=== PATIENT | female | born 1960 | race Caucasian/White ===

== ENCOUNTER → 2016-12-03 | Outpatient (CLI) | payer BC | LOC: MC.RAD 08:08 | DX: Z12.31 Encounter for screening mammogram for malignant neoplasm of breast (principal); N64.89 Other specified disorders of breast ==

== ENCOUNTER → 2017-12-16 | Outpatient (CLI) | payer BC | LOC: MC.RAD 10:30 | DX: Z12.31 Encounter for screening mammogram for malignant neoplasm of breast (principal) ==

== ENCOUNTER → 2018-12-25 | Outpatient (CLI) | payer BC | LOC: MC.RAD 12:52 | DX: Z12.31 Encounter for screening mammogram for malignant neoplasm of breast (principal) ==

== ENCOUNTER 2019-03-09 07:27 | Day surgery (SDC) | payer BC ==
[~2019-03-09] VITALS: Ht 170.2 cm; Wt 85.0 kg
[2019-03-09] MEDS ORDERED: MOBIC 7.5MG7.5 MG PO (07:58)
[2019-03-09] MEDS ORDERED: CENTRUM SILVER1 CTB PO (07:59)
[2019-03-09] MEDS ORDERED: GLUCOSAMINE SUL1 TAB PO (07:59)
[2019-03-09] MEDS ORDERED: ASPIRIN 81M81 MG/TA2 PO (08:00)
[2019-03-09 08:18] VITALS: BP 119/69; PULSE 78; TEMP 98.3
[2019-03-09 11:08] VITALS: BP 137/63; PULSE 73; TEMP 97.8
--- NOTE | 2019-03-09 11:08 | NUR ---
Patient arrives back to [facility] alert, reports pain tolerable in left knee. Patient monitor applied, vitals stable. Patient's spouse at bedside. Patient given water, coffee, and muffin.
[2019-03-09 11:15] VITALS: BP 129/59; PULSE 73
--- NOTE | 2019-03-09 11:15 | NUR ---
Vitals stable, dressing clean/dry/intact, ice pack intact and left knee/lower leg elevated.
[2019-03-09 11:30] VITALS: BP 124/55; PULSE 77
--- NOTE | 2019-03-09 11:35 | NUR ---
Patient tolerates food and drink without any nausea. Reports she is starting to wake up and feels good. Denies wanting any pain medication. Vitals stable.
[2019-03-09] MEDS ORDERED: NORCO 325 MG-7.1 TAB PO (11:36)
--- NOTE | 2019-03-09 11:50 | NUR ---
Patient reports she is feeling good, denies wanting any pain medication, denies nausea. Reports she is ready to go home.
[2019-03-09 12:00] VITALS: BP 128/69; PULSE 60
--- NOTE | 2019-03-09 12:20 | NUR ---
Dismissal instructions gone over with patient and patient's spouse. Both verbalized understanding and all questions answered.
--- NOTE | 2019-03-09 12:30 | NUR ---
Patient up to restroom and is able to urinate without any difficulties. Patient ambulates with stand by assist.
--- NOTE | 2019-03-09 12:40 | NUR ---
Patient dismissed to home, patient leaves thanking staff for services.
== END 2019-03-09 12:40 | disposition home or self-care (01) ==
LOC: SDCO 07:27
DX: M23.221 Derangement of posterior horn of medial meniscus due to old tear or injury, right knee (principal); M22.41 Chondromalacia patellae, right knee; M19.90 Unspecified osteoarthritis, unspecified site; Z90.710 Acquired absence of both cervix and uterus; Z80.1 Family history of malignant neoplasm of trachea, bronchus and lung
CPT/HCPCS: J0171; J0690; J1100; J1885; J2270; J2405; J2704; J3010; J7120

== ENCOUNTER → 2019-05-13 | Outpatient (CLI) | payer BC ==
[~2019-05-13] MED LIST: ASPIRIN 81M81 MG/TA2 PO; CENTRUM SILVER1 CTB PO; GLUCOSAMINE SUL1 TAB PO; MOBIC 7.5MG7.5 MG PO; NORCO 325 MG-7.1 TAB PO
== END ==
LOC: COL.VAS 14:44
DX: M79.89 Other specified soft tissue disorders (principal); Z98.890 Other specified postprocedural states

== ENCOUNTER → 2020-01-07 | Outpatient (CLI) | payer BC | LOC: MC.RAD 07:00 | DX: Z12.31 Encounter for screening mammogram for malignant neoplasm of breast (principal) ==

== ENCOUNTER → 2021-01-11 | Outpatient (CLI) | payer BC | LOC: MC.RAD 08:00 | DX: Z12.31 Encounter for screening mammogram for malignant neoplasm of breast (principal); R09.89 Other specified symptoms and signs involving the circulatory and respiratory systems ==

== ENCOUNTER → 2022-05-30 | Outpatient (CLI) | payer BC | LOC: MC.RAD 07:40 | DX: Z12.31 Encounter for screening mammogram for malignant neoplasm of breast (principal) ==

== ENCOUNTER → 2024-08-04 | Outpatient (CLI) | payer MEDICARE | LOC: MC.RAD 06:58 | DX: Z12.31 Encounter for screening mammogram for malignant neoplasm of breast (principal) ==